=== PATIENT | female | born 1960 | race Caucasian/White ===

== ENCOUNTER → 2021-11-23 | Outpatient (CLI) | payer OTHER ==
--- NOTE | 2021-11-23 21:07 | MR ---
EXAMINATION TYPE: MR shoulder LT wo con DATE OF EXAM: 11/23/2021 COMPARISON: Radiographs 11/08/2021 HISTORY: Left shoulder pain. TECHNIQUE: Multiplanar, multisequence imaging of the left shoulder is performed without contrast. FINDINGS: Rotator Cuff: There is moderate tendinosis and bursal surface fraying of the supraspinatus tendon wit hout significant tear. The infraspinatus, subscapularis and teres minor tendons are grossly intact. N o evidence of high-grade partial thickness or full-thickness rotator cuff tear. No significant rotato r cuff muscular edema or atrophy. Acromioclavicular Joint: Moderate to severe osteoarthritis of the acromioclavicular joint. Glenohumeral Joint: Moderate osteoarthritis. Labrum: There is chronic SLAP type tear of the superior labrum with 11 mm anterior cystic structure c ompatible with paralabral cyst. Biceps Tendon: The long head of biceps is in normal location within bicipital groove. There is modera te tendinosis of the intra-articular long head biceps tendon without tear. Bone marrow signal: Degenerative cystic changes within the superolateral humeral head. Otherwise no s ignificant bone marrow abnormality. Other: Small glenohumeral joint effusion. IMPRESSION: Moderate osteoarthritis with degenerative labral tear. Suggestion of small paralabral cyst. Moderate tendinosis and bursal surface fraying of the supraspinatus tendon. No evidence of high-grade partial thickness or full-thickness rotator cuff tear.
== END | disposition home or self-care (01) ==
LOC: RADMRIMAIN 18:59
PROVIDERS: ATTEND Orthopaedic Surgery
DX: M19.012 Primary osteoarthritis, left shoulder (principal); S43.432A Superior glenoid labrum lesion of left shoulder, initial encounter

== ENCOUNTER → 2021-12-13 | Outpatient (CLI) | payer OTHER ==
[2021-12-13 18:37] LABS: Basophils # (A) 0.08 X 10*3/uL (0.00-0.10); Basophils % (A) 1.1 %; Eosinophils % (A) 2.6 %; HCT 40.8 % (37.2-46.3); HGB 13.2 g/dL (12.0-15.0); Immature Grans, Automated 0.1 %; Lymphocytes # (A) 2.79 X 10*3/uL (0.90-5.00); Lymphocytes % (A) 36.9 %; MCH 31.2 pg (27.0-32.0); MCHC 32.4 g/dL (32.0-37.0); MCV 96.5 fL (80.0-97.0); Mean Platelet Volume 9.7 fL (9.5-12.2); Monocytes # (A) 0.42 X 10*3/uL (0.20-1.00); Monocytes % (A) 5.5 %; NRBC Per 100 WBC 0 /100 WBCS (0.0-0.0); Neutrophils # (A) 4.07 X 10*3/uL (1.80-7.70); Neutrophils % (A) 53.8 %; Platelet Count 301 X 10*3/uL (140-440); RBC 4.23 X 10*6/uL (4.10-5.20); RDW 12.6 % (11.5-14.5); WBC 7.57 X 10*3/uL (4.50-10.00)
[2021-12-13 18:38] LABS: Potassium 4.3 mmol/L (3.5-5.5)
== END | disposition home or self-care (01) ==
LOC: LABPAT 12:51
PROVIDERS: ATTEND Orthopaedic Surgery
DX: Z01.818 Encounter for other preprocedural examination (principal); M75.42 Impingement syndrome of left shoulder; R94.31 Abnormal electrocardiogram [ECG] [EKG]
CPT/HCPCS: 80051; 85025; 93005

== ENCOUNTER 2022-01-04 08:16 | Day surgery (SDC) | payer OTHER ==
[2022-01-02 11:04] VITALS: BMI 22.3
--- NOTE | 2022-01-03 19:26 | HP ---
HISTORY AND PHYSICAL DATE OF SURGERY: 01/04/2022 Mera Navas is a 61-year-old patient seen with progressive left shoulder pain. We discussed options for treatment. She elected to proceed with left shoulder arthroscopy. Consent was obtained. PAST MEDICAL HISTORY: Hypothyroidism, COPD. PAST SURGICAL HISTORY: Cholecystectomy, back surgery. DAILY MEDICATIONS: Albuterol, aspirin, levothyroxine, vitamins. ALLERGIES: AUGMENTIN, CECLOR, ERYTHROMYCIN, LEVAQUIN, SULFA. SOCIAL HISTORY: She smokes cigarettes. PHYSICAL EVALUATION OF THE LEFT SHOULDER: Flexion is 140 degrees. Abduction is 120 degrees. External rotation is 30 degrees with some weakness. Tenderness all along the anterolateral acromion and acromioclavicular joint as well as rotator cuff insertion site. Impingement is positive at 90. Drop-arm sign is positive. Distal neurovascular exam is intact. Radiographs of the left shoulder revealed a type 2 acromion, evidence for acromioclavicular joint osteoarthritis and cystic changes of the tuberosity. MRI left shoulder revealed severe acromioclavicular joint osteoarthritis, moderate rotator cuff tendinitis and labral tear. IMPRESSION: 1. Left shoulder impingement with rotator cuff tendinitis. 2. Left shoulder acromioclavicular joint osteoarthritis with left shoulder labral tear. 3. Hypothyroidism. PLAN: Left shoulder arthroscopy, subacromial decompression, Ovi procedure, possible arthroscopic rotator cuff repair and debridement of labral tear. MMODL / IJN: [id number] /
[~2022-01-04 08:16] MED LIST: DEXAMETHASONE SOD PHOSPHATE 4 MG/ML 1 ML VIAL IV ONE; HYDROmorphone 0.5 MG/0.5 ML SYRINGE IVP PRN; LACTATED RINGERS 1,000 ML IV SCH; LIDOCAINE 1% (10MG/ML) FOR IV START INTRADERMA PRN; MIDAZOLAM 2 MG/2 ML VIAL IV PRN; ONDANSETRON 4 MG/2 ML VIAL IVP ONE; fentaNYL (PF) 50 MCG/ML 2 ML AMP IVP PRN
[2022-01-04] MEDS ORDERED: MIDAZOLAM 2 MG/2 ML VIAL IVP ONE (09:19)
[2022-01-04] MEDS ORDERED: fentaNYL (PF) 50 MCG/ML 2 ML AMP IVP ONE (09:19)
[2022-01-04] MEDS ORDERED: MIDAZOLAM 2 MG/2 ML VIAL ONE (09:54)
[2022-01-04] MEDS ORDERED: ePHEDrine 50 MG/ML 1 ML VIAL ONE (09:54)
[2022-01-04] MEDS ORDERED: PHENYLEPHRINE-0.9% NACL SYG 1,000 MCG/10 ML SYRINGE ONE (09:54)
[2022-01-04] MEDS ORDERED: LIDOCAINE 2% INJ 20 MG/ML (2 ML VIAL) ONE (09:54)
[2022-01-04] MEDS ORDERED: fentaNYL (PF) 50 MCG/ML 2 ML AMP ONE (09:54)
[2022-01-04] MEDS ORDERED: PROPOFOL 10 MG/ML 20 ML VIAL IV ONE (09:54)
[2022-01-04] MEDS ORDERED: SUCCINYLCHOLINE CHLORIDE 100 MG/5 ML SYR IV ONE (09:54)
[2022-01-04] MEDS ORDERED: ROPIVACAINE 5 MG/ML 30 ML VIAL ONE (09:54)
--- NOTE | 2022-01-04 09:58 | P.ANPRN ---
Procedure Note - Anesthesia - Nerve Block Performed Left Interscalene Single Time Out Performed: Yes ([id number]) Date of Procedure: 01/04/22 Procedure Start Time: : Procedure Stop Time: : Location of Patient: PreOp Indication: Acute Post-Operative Pain, Requested by Surgeon Specifically requested for management of pain by DrShar: Dakota Grande Sedation Type: Sedate with meaningful contact maintained Preparation: Sterile Prep Position: Supine Catheter: None Needle Types: Pajunk Needle Gauge: 21 Ultrasound used to visualize needle placement: Yes Ultrasound used to observe medication spread: Yes Injectate: 0.5% Ropivacaine (see comment for volume) (30CC) Blood Aspirated: No Pain Paresthesia on Injection Noted: No Resistance on Injection: Normal Image Stored and Saved: Yes Events: Uneventful and Well Tolerated
--- NOTE | 2022-01-04 11:27 | P.OP ---
Date of Procedure: 01/04/22 Preoperative Diagnosis: Left shoulder impingement Postoperative Diagnosis: 1. Left shoulder rotator cuff tear 2. Left shoulder impingement 3. Left shoulder acromioclavicular joint osteoarthritis 4. 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 Left shoulder arthroscopic rotator cuff repair 2. Left shoulder arthroscopic subacromial decompression 3. Left shoulder arthroscopic Ovi procedure 4. Left shoulder arthroscopic chondroplasty humeral head Implants: 15.5 Arthrex swivel lock anchor Anesthesia: GETA, regional (Interscalene block) Surgeon: Dakota Grande Plate Mounter #1: Vidal Jacobs Estimated Blood Loss (ml): 11 Pathology: none sent Condition: stable Disposition: PACU Indications for Procedure: 61-year-old patient seen with progressive left shoulder pain. After treatment options were discussed, she elected to proceed with arthroscopy. Operative Findings: See description of procedure Description of Procedure: Patient underwent an interscalene block by department of anesthesia. The patient was then taken to the operative suite. The patient underwent a general anesthetic by the department of anesthesia. The patient was placed into a lateral position and secured. There was appropriate padding of the bony prominence. Left shoulder was then prepped and draped in normal sterile orthopedic fashion. We placed the extremity in 10 pounds of longitudinal traction. A posterior incision was now made for a posterior working portal site. The trocar and cannula were inserted into the glenohumeral joint. Arthroscopy was initiated. Spinal needle was now inserted anteriorly, to ascertain the anterior working portal site. An incision was now made in that area, a trocar was inserted followed by a probe. There were diffuse chondromalacia changes about the glenohumeral joint. Specifically there was an area of grade 2/3 chondromalacia of the humeral head with some osteochondral tears present. There was some superficial fraying of the labrum anteriorly. I performed a chondroplasty of the humeral head getting down to stable osteochondral tissue. I debrided out the superficial fraying of the labrum. The residual labrum was stable. The residual osteochondral surface was stable again noted grade 2/3 chondromalacia. At this point instruments removed from glenohumeral joint. Utilizing the posterior working portal site, the trocar and cannula were inserted into the subacromial space. Arthroscopy initiated. I made an incision 2 fingerbreadths lateral to the acromion. I introduced my trocar followed by my ArthroCare ablator. I now began ablating thick subacromial bursal tissue, which exposed the undersurface of the anterior acromion. There was diminished subacromial space. There was a very prominent anterior acromion. A motorized bur was introduced and a subacromial decompression was performed. I also excised some osteophytes off the inferior aspect of the distal clavicle. The AC joint was visualized and noted to be fairly arthritic. The motorized bur was introduced in the anterior portal site and a Ovi procedure was performed without difficulty, decompressing the AC joint nicely. I turned my attention to the rotator cuff. There was an area of significant partial tearing along the posterior aspect of the distal supraspinatus. Upon probing the areas there was a full-thickness perforation present. I debrided the margins getting down to stable tendon tissue. I abraded the footprint with a motorized bur. With the assistance of Anirudh GARLAND now passed 3 everted mattress sutures through good bites of rotator cuff tendon. I punched a hole in the year the footprint for insertion of an anchor. I now passed all 6 limbs of suture through the eyelet of a 5.5 Arthrex swivel lock anchor. I now placed the eyelet into the pre- punched hole. I held it in position while Anirudh GARLAND tensioned all 6 limbs of suture and deployed the anchor with good fixation noted. All suture limbs were clipped. We had good compression of the tendon along the entire footprint. Instruments now removed from the portal sites. All portal sites were approximated with nylon suture. Sterile dressings were applied followed by a shoulder sling. Vidal GARLAND assisted in this complex case. The patient was awakened, transferred to a bed, and taken to recovery in stable condition.
[2022-01-04 11:34] VITALS: TEMP 98.5
[2022-01-04 11:43] VITALS: RESP 16
[2022-01-04 12:39] VITALS: BP 138/85; PULSE 73
== END 2022-01-04 13:21 | disposition home or self-care (01) ==
LOC: OR 08:16
PROVIDERS: ATTEND Orthopaedic Surgery
DX: M75.102 Unspecified rotator cuff tear or rupture of left shoulder, not specified as traumatic (principal); M25.812 Other specified joint disorders, left shoulder; M19.012 Primary osteoarthritis, left shoulder; M94.212 Chondromalacia, left shoulder; K21.9 Gastro-esophageal reflux disease without esophagitis; E03.9 Hypothyroidism, unspecified; J44.9 Chronic obstructive pulmonary disease, unspecified; Z90.49 Acquired absence of other specified parts of digestive tract; F17.210 Nicotine dependence, cigarettes, uncomplicated; Z98.890 Other specified postprocedural states; Z79.82 Long term (current) use of aspirin; Z79.890 Hormone replacement therapy; Z79.899 Other long term (current) drug therapy; Z88.1 Allergy status to other antibiotic agents; Z88.0 Allergy status to penicillin; Z88.2 Allergy status to sulfonamides
CPT/HCPCS: 64415; 76942; 29826; 29827; 29824; C1713; J2250; J1100; J2405; J0690; J3010; J2795; J2370; J0330; J2704; J2001

== ENCOUNTER → 2022-10-30 | Outpatient (CLI) | payer OTHER ==
--- NOTE | 2022-10-30 11:37 | BD ---
EXAMINATION TYPE: Axial Bone Density DATE OF EXAM: 10/30/2022 CLINICAL HISTORY: 60 years old Female. ICD-10 CODE: M85.852 Osteopenia of left hip Height: 63.5 Weight: 136.1 FRAX RISK QUESTIONS: Alcohol (3 or more units per day): no Family History (Parent hip fracture): no Glucocorticoids (More than 3mos): no History of Fracture in Adulthood: no Secondary Osteoporosis: 1. Type 1 Diabetes: no 2. Hyperthyroidism: no 3. Menopause before 45: no 4. Malnutrition: no 5. Chronic liver disease: no Rheumatoid Arthritis: no Current Tobacco Use: yes RISK FACTORS HISTORY OF: Hip Fracture (Right/Left): no Spine Fracture: no History of Wrist Fracture: no Surgery to Spine/Hip(right/left)/Wrist (right/left): no Family History of Osteoporosis: no Active: yes Diet low in dairy products/other sources of calcium: no Postmenopausal woman: yes Take estrogen and/or progesterone medications: no Lost more than 2 inches in height since high school: no Frequent falls: no Poor Health: no Hyperparathyroidism: no Adrenal Insufficiency: no MEDICATIONS: Prednisone or other steroids: no Thyroid Medications: Levothyroxine How Long: Past 20 years Osteoporosis Medications: no Additional Medications: Reflux meds, Vit D, Additional History: EXAM MEASUREMENTS: Bone mineral densitometry was performed using the [employer] System. Bone mineral density as measured about the Lumbar spine is: ----- L1-L4(G/cm2): 1.063 T Score Values are as follows: ----- L1: -1.1 ----- L2: -1.3 ----- L3: -1.4 ----- L4: -0.2 ----- L1-L4: -1.0 Z Score Values are as follows: ----- L1: 0.6 ----- L2: 0.4 ----- L3: 0.3 ----- L4: 1.4 ----- L1-L4: 0.7 Baseline study Bone mineral density about the R hip (g/cm2): 0.820 Bone mineral density about the L hip (g/cm2): 0.828 T Score values are as follows: -----R Neck: -1.2 -----L Neck: -1.2 -----R Total: -1.5 -----L Total: -1.4 Z Score values are as follows: -----R Neck: 0.3 -----L Neck: 0.3 -----R Total: -0.2 -----L Total: -0.2 Baseline Study FRAX%s: The graph provided illustrates a 8.1% chance for a major osteoporotic fx and a 1.2% chance fo r the hips probability for fx in 10 years time. IMPRESSION: Osteopenia (T Score between -2.5 and -1). There is slightly increased risk of fracture and the patient may be considered for treatment. Re-Screen 2-5 years. NOTE: T-SCORE=SD OF THE YOUNG ADULT MEAN.
--- NOTE | 2022-10-31 07:23 | MM ---
Reason for Exam: Screening (asymptomatic). Last mammogram was performed 2 year(s) and 2 month(s) ago. Patient History: Menarche at age 11. First Full-Term at age 20. Postmenopausal. Risk Values: Mitzi 5 year model risk: 1.4%. NCI Lifetime model risk: 5.8%. Prior Study Comparison: 08/18/2020 Bilateral Screening Mammogram, Jamal Bhardwaj . Tissue Density: There are scattered fibroglandular densities. Findings: Analyzed By CAD. There is no suspicious group of microcalcifications or new suspicious mass in either breast. Overall Assessment: Negative, BI-RAD 1 Management: Screening Mammogram of both breasts in 1 year. A clinical breast exam by your physician is recommended on an annual basis and results should be correlated with mammographic findings. Electronically signed and approved by: Cyrus Santiago M.D. Radiologis
== END | disposition home or self-care (01) ==
LOC: RADMAMWWP 06:52
PROVIDERS: ATTEND Family Medicine
DX: Z12.31 Encounter for screening mammogram for malignant neoplasm of breast (principal); M85.89 Other specified disorders of bone density and structure, multiple sites; Z78.0 Asymptomatic menopausal state
CPT/HCPCS: 77067; 77080

== ENCOUNTER → 2023-08-01 | Outpatient (CLI) | payer MEDICARE, BC ==
--- NOTE | 2023-08-01 11:38 | MR ---
EXAMINATION TYPE: MR lumbar spine wo con DATE OF EXAM: 08/01/2023 COMPARISON: 08/15/2010 HISTORY: Low back pain into left leg. CONTRAST: 0 mL intravenous Gadavist. TECHNIQUE: Multiplanar, multisequence images of the lumbar spine were acquired. FINDINGS: L5-S1: No significant disc bulge or disc herniation. Previous disc herniation has resolved No spinal canal stenosis. No foraminal stenosis. There appears to be a synovial cyst or Tarlov cyst in the rig ht L5-S1 foramen. Correlate with radicular symptoms. L4-L5: There is narrowing of the disc height. Facet hypertrophy with ligamentum flavum laxity has min imal posterior lateral thecal sac compression. No spinal canal stenosis. Moderate right foraminal st enosis present. L3-L4: No significant disc bulge or disc herniation. No spinal canal stenosis. No foraminal stenosi s. Facet hypertrophy has posterior lateral thecal sac compression without stenosis.. L2-L3: Mild disc bulge has anterior thecal sac flattening. No AP spinal canal stenosis present. Minim al posterior lateral thecal sac compression is present. No spinal canal stenosis. No foraminal sten osis. . L1-L2: No significant disc bulge or disc herniation. No spinal canal stenosis. No foraminal stenosi s. Minimal facet hypertrophy and ligamentum flavum laxity is present on the left with posterior later al thecal sac compression T12-L1: No significant disc bulge or disc herniation. No spinal canal stenosis. No foraminal stenos is. Neural foramen are patent.. Cord terminates at the L1 level. IMPRESSION: 1. Moderate right foraminal stenosis L4-5. 2. Facet hypertrophy with ligamentum flavum laxity has mild posterior lateral thecal sac compression without stenosis discussed above. 3. 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 Correlate with radic ular symptoms.
== END | disposition home or self-care (01) ==
LOC: RADMRIMAIN 05:52
PROVIDERS: ATTEND Psychiatry & Neurology Neurology
DX: M99.73 Connective tissue and disc stenosis of intervertebral foramina of lumbar region (principal); M47.26 Other spondylosis with radiculopathy, lumbar region; M24.28 Disorder of ligament, vertebrae; G96.191 Perineural cyst
CPT/HCPCS: 72148

== ENCOUNTER → 2023-11-05 | Outpatient (CLI) | payer MEDICARE, BC ==
[2023-11-05 08:30] VITALS: BP 141/82; PULSE 82; RESP 16; TEMP 97.3
--- NOTE | 2023-11-05 14:08 | P.PAINPG ---
PQRS Measure Charge Sheet Comment: HISTORY OF PRESENT ILLNESS: A 63 yr old female as a referral from Dr Leila Grande presents today w severe and chronic LBP > 1 yr secondary to for evaluation. Pt states pain level is provoked at 6 /10 in intensity, intermittent, localized in the lumbar spine, predominantly axial, sharp in character w occasional shooting pain towards the BL buttocks. Pain is provoked by sitting > 20 min. Pain is alleviated by PT x 6 wks which ended in Sep 2023, physician guided home exercises/ stretches every morning since Sep 2023, massage therapy monthly which started 1 mo ago, heat, medications (Ibu), THC topical, repositioning and rest . Oswestry axial pain score at 28. PMH: OA, PSH: L RCT Repair (2021), EGD (2014) SH: Daily tobacco use, Occasional ETOH use, THC topical use FH: Fa- Lung CA. Mo- Parkinson's Disorder All: See list Meds: See list REVIEW OF ORGAN SYSTEMS: CONSTITUTIONAL: No fevers or chills. No recent weight loss. NEUROLOGICAL: + numbness and tingling along the distal extremities. No seizure disorders or headaches. MUSCULOSKELETAL: + pain PSYCHIATRIC: Denies current depression or suicidal thoughts. Physical Examinations : Constitutional : Cooperative , not in acute distress . Neurologic : Cranial nerve II to XII intact. No focal neurological deficits. Psychiatric : alert & oriented x 3. Matching mood & appropriate affect. Judgment & insight intact. Musculoskeletal : Cervical Spine Motor strength in the deltoid and biceps: Normal right side. Normal Left side Motor strength biceps and the wrist extensors: Normal right side . Normal left side Motor strength in the triceps muscle: Normal right side. Normal left side Deep tendon reflexes: Normal at the biceps. Normal at Brachioradialis. Normal at triceps Vertebral body tenderness to deep palpation over Cervical facet loading test: positive bilaterally Spurling test: positive bilaterally Neck distraction test: positive bilaterally Bishop sign: positive bilaterally Lumbar spine Motor strength lower extremities ,thigh and legs 5/5 Right side , 5/5 Left side Deep tendon reflexes : Normal Knee Jerk. Normal Ankle Jerk Vertebral body tenderness over Echeverria Test positive Lumbar facet Loading Test: positive Right / positive Left Range of motion of the lumbar spine Flexion 30 degrees, extension 10 degrees Straight Leg Raise test: Left/ Right positive at degrees Swapnil test: positive right / positive left. Severe tenderness over the Sacroiliac joint on the Right / Left sides Gaenslen test: positive bilaterally Seated flexion test: positive bilaterally. Sacral spine : Severe tenderness over the Sacroiliac joint: right side / left side Range of motion: Flexion of the lumbar spine <60 degrees Range of motion: Extension of the l umbar spine <20 degrees Gaenslen's Test positive BL Swapnil test: positive right side / left side Thigh Thrust Test BL positive Sacral Thrust Test Imaging: MRI non contrast of the lumbar spine from 08/01/23 reviewed Assessment/ Plan : BL Sacroiliitis, Lumbar DDD Recommendation of BL SI injection #1. May need a series of injections for optimal pain relief. Risks, benefits of procedure discussed and patient verbalized understanding. Admits to anti- coagulant use or medical history of diabetes. Protocol for discontinuation/ continuation of medications gissell procedure discussed. All questions answered. I have spent greater than 30 minutes on patient care today. Dr Betancourt was available by phone for the evaluation of this patient. The time was used to re view the medical records including relevant urine studies and Prescription history (MAPs), review of the available imaging, evaluation and examination of the patient, coordination of care with the medical staff and if applicable referring physicians, as well as creation of the medical record PQRS Narrative: Smoking Status Current every day smoker Home Medications: Ambulatory Orders RABEprazole SODIUM [Aciphex] 20 mg PO DAILY 04/20/15 Albuterol Inhaler [Ventolin Hfa Inhaler] 1 - 2 puff INHALATION RT-Q6H PRN 01/02/22 Aspirin [Adult Low Dose Aspirin EC] 81 mg PO DAILY 01/02/22 Cholecalciferol [Vitamin D3 (25 Mcg = 1000 Iu)] 25 mcg PO DAILY 01/02/22 Levothyroxine Sodium [Synthroid] 75 mcg PO DAILY 01/02/22 traMADol HCl [Ultram] 50 mg PO Q6H PRN #21 tab 01/04/22 Controlled Substance Measures - Controlled Substance Measures Is patient prescribed a controlled substance at discharge?: No
== END ==
LOC: PNWHC3 07:21
PROVIDERS: ATTEND Specialist
DX: M51.16 Intervertebral disc disorders with radiculopathy, lumbar region (principal); M46.1 Sacroiliitis, not elsewhere classified; G89.29 Other chronic pain; F17.200 Nicotine dependence, unspecified, uncomplicated; Z88.0 Allergy status to penicillin; Z88.1 Allergy status to other antibiotic agents; Z88.6 Allergy status to analgesic agent; Z88.2 Allergy status to sulfonamides; Z88.8 Allergy status to other drugs, medicaments and biological substances
CPT/HCPCS: 99211

== ENCOUNTER → 2025-01-07 | Outpatient (CLI) | payer MEDICARE, BC ==
--- NOTE | 2025-01-07 09:11 | MM ---
Reason for Exam: Screening (asymptomatic). Last mammogram was performed 2 year(s) and 3 month(s) ago. Patient History: Menarche at age 11. First Full-Term at age 20. Postmenopausal. Risk Values: Mitzi 5 year model risk: 1.5%. NCI Lifetime model risk: 5.4%. Prior Study Comparison: 07/17/2019 Bilateral Screening Mammogram, Jamal Barnesomb . 08/18/2020 Bilateral Screening Mammogram, Jamal Bhardwaj . 10/30/2022 Bilateral MG screening mammo w CAD, [facility]. Tissue Density: There are scattered areas of fibroglandular density. Findings: Analyzed By CAD. Bilateral areas of asymmetric density are unchanged. There is no suspicious group of microcalcifications or new suspicious mass in either breast. Overall Assessment: Benign, BI-RAD 2 Management: Screening Mammogram of both breasts in 1 year. Patient should continue monthly self-breast exams. A clinical breast exam by your physician is recommended on an annual basis. This exam should not preclude additional follow-up of suspicious palpable abnormalities. Note on Mitzi scores and lifetime risk: 1. A Mitzi score greater than 3% is considered moderate risk. If this is the case, consider specialist referral to assess eligibility for a risk reducing agent. 2. If overall lifetime risk for the development of breast cancer is 20% or higher, the patient may qualify for future screening with alternating mammogram and breast MRI. [facility], , 01/07/2025 9:08 AM. Electronically signed and approved by: Billy Matias M.D. Radiologist
== END | disposition home or self-care (01) ==
LOC: RADMAMWWP 08:43
PROVIDERS: ATTEND Family Medicine
DX: Z12.31 Encounter for screening mammogram for malignant neoplasm of breast (principal); R92.323 Mammographic fibroglandular density, bilateral breasts
CPT/HCPCS: 77063; 77067